=== PATIENT | male | born 1940 | race Caucasian/White ===

== ENCOUNTER 2020-05-04 12:20 | Inpatient (IN) | payer MEDICARE ==
[~2020-05-04 12:20] MED LIST: Atropine Sulfate 1 mg/10 ml Syringe ONE; Iopamidol 370 76% 100 ML VIAL ONE
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
[2020-05-04] MEDS ORDERED: Fentanyl 100 MCG/2 ML VIAL ONE (13:33)
[2020-05-04] MEDS ORDERED: Ondansetron PF 4 MG/2 ML Vial ONE ×2 (13:33→15:56)
[2020-05-04] MEDS ORDERED: Boostrix 0.5 ML (Tdap) VIAL ONE (13:33)
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
[2020-05-04 13:59] LABS: Hemoglobin 12.3 g/dL (14.0-18.0); Mean Corpuscular HGB CONC 32.6 g/dL (32.0-36.0); Mean Corpuscular Volume 98.2 fL (78.0-98.0); Platelet Count 179 thou/uL (130-400); RBC Distribution Width 12.2 % (11.5-14.5); Red Blood Cell (RBC) Count 3.84 mill/uL (4.70-6.10); White Blood Cell (WBC) Count 28.2 thou/uL (4.8-10.8)
[2020-05-04] MEDS ORDERED: Calcium Chloride 1 GM/10 ML Abboject SYRINGE ONE ×3 (14:02→23:18)
[2020-05-04] MEDS ORDERED: Magnesium 2 GM/50 ML BAG (IN WATER) ONE (14:02)
[2020-05-04 14:12] LABS: INR-International Normal Ratio 1.3; Prothrombin Time 16.6 sec (12.0-14.7)
[2020-05-04] MEDS ORDERED: Morphine 2 MG/ML VIAL SLOW IVP PRN ×2 (14:14→22:15)
[2020-05-04] MEDS ORDERED: Ondansetron PF 4 MG/2 ML Vial IVP PRN (14:14)
[2020-05-04] MEDS ORDERED: Insulin Regular 300 UNITS/3 ML VIAL SC PRN (14:14)
[2020-05-04] MEDS ORDERED: Dextrose 50% Abboject 50 ML SYRINGE SLOW IVP PRN (14:14)
[2020-05-04] MEDS ORDERED: Morphine 4 MG/ML VIAL SLOW IVP PRN (14:14)
[2020-05-04] MEDS ORDERED: Dextrose 5% in Water 1,000 ML IV PRN (14:14)
[2020-05-04] MEDS ORDERED: hydrALAZINE 20 MG/ML VIAL SLOW IVP PRN (14:14)
[2020-05-04] MEDS ORDERED: Sodium Chloride 0.9% 1,000 ML IV SCH (14:15)
[2020-05-04 14:17] LABS: Band 19 % (5-11); Eosinophils 1 % (0-10); Lymphocytes 2 % (21-51); MDiff Complete? YES; Metamyelocyte 1 % (0-0); Monocytes 2 % (0-10); Neutrophil 75 % (42-75); Ovalocytes SLIGHT = 2-5 cells (100X) (0-1/hpf); Platelet Morphology Comment Appears Adequate; Polychromasia SLIGHT = 2-3 cells (100X) (0-2/hpf)
[2020-05-04 14:24] LABS: ALT (SGPT) 38 U/L (8-55); AST (SGOT) 42 U/L (5-34); Albumin 3.1 g/dL (3.4-4.8); Alcohol Less than 10 mg/dL (Less than 10); Alkaline Phosphatase 51 U/L (40-110); Anion Gap 19 mmol/L (10-20); BUN (Urea Nitrogen) 17 mg/dL (8.4-25.7); Bilirubin, Total 0.5 mg/dL (0.2-1.2); Calc. Creatinine Clearance 0 mL/min (70-130); Calcium 7.8 mg/dL (7.8-10.44); Carbon Dioxide 17 mmol/L (23-31); Chloride 108 mmol/L (98-107); Globulin 1.9 g/dL (2.4-3.5); Glucose 140 mg/dL (83-110); Magnesium 1.8 mg/dL (1.6-2.6); Potassium 3.5 mmol/L (3.5-5.1); Sodium 140 mmol/L (136-145)
[2020-05-04 14:31] LABS: Phosphorus 2.3 mg/dL (2.3-4.7)
[2020-05-04] MEDS ORDERED: Hydrocortisone Sod Succ/PF 100 mg/2 ml Vial ONE (15:13)
[2020-05-04] MEDS ORDERED: Magnesium 2 GM/50 ML 2 GM in Premix Bag 1 BAG IVPB SCH (15:15)
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
[2020-05-04 15:43] LABS: Analyzer IN Cardio ER; Base Excess (BEa) -8.1 mEq/L (-2.0 to +3.0); Calcium, Ionized (arterial) 1.29 mmol/L (1.12-1.30); Carboxyhemoglobin (COHb) 0.5 gm% (0.0-3.0); Hemoglobin (Hb) 13.9 g/dL (14.0-18.0); O2 Tension (PaO2), arterial 73.8 mmHg (> 60.0); Potassium - ABG Lab 3.72 mmol/L (3.70-5.30); pH, Arterial 7.39 (7.35-7.45)
[2020-05-04 15:47] LABS: ALV-art Gradient 94.215 mmHg (0-20); CO2 Tension 25.3 mmHg (35.0-45.0); Puncture Site RRA
[2020-05-04 15:57] LABS: SARS-CoV-2 NAA Rapid Test Not Detected (NotDetected)
[2020-05-04] MEDS ORDERED: Tranexamic Acid 1,000 MG/10 ML VIAL ONE (15:58)
[2020-05-04] MEDS ORDERED: Famotidine/PF 20 mg/2ml Vial ONE (16:26)
[2020-05-04] MEDS ORDERED: Neomycin-Polymyxin 1 ML AMP ONE (16:52)
[2020-05-04] MEDS ORDERED: Lidocaine 1% (PF) 30 ML VIAL ONE (16:52)
[2020-05-04] MEDS ORDERED: Potassium Phosphate 15 MMOL in Sodium Chloride 0.9% 250 ML 250 ML IVPB SCH (17:00)
[2020-05-04 17:04] LABS: Troponin I Less than 0.010 ng/mL (< 0.028)
[2020-05-04] MEDS ORDERED: Fentanyl 250 MCG/5 ML VIAL ONE (17:16)
[2020-05-04] MEDS ORDERED: Phenylephrine 10 MG/ML VIAL ONE (17:16)
[2020-05-04 17:41] LABS: Lactic Acid 5.7 mmol/L (0.5-2.2)
[2020-05-04] MEDS ORDERED: Sodium Bicarb 50 MEQ/50 ML Abboject 8.4% SYRINGE ONE (17:49)
[2020-05-04] MEDS ORDERED: Fentanyl 100 MCG/2 ML VIAL SLOW IVP PRN (17:54)
[2020-05-04 18:19] LABS: Anion Gap 19 mmol/L (10-20); BUN (Urea Nitrogen) 17 mg/dL (8.4-25.7); Calc. Creatinine Clearance 0 mL/min (70-130); Calcium 8.6 mg/dL (7.8-10.44); Carbon Dioxide 15 mmol/L (23-31); Chloride 111 mmol/L (98-107); Glucose 178 mg/dL (83-110); Magnesium 1.7 mg/dL (1.6-2.6); Potassium 3.6 mmol/L (3.5-5.1); Sodium 141 mmol/L (136-145)
[2020-05-04 18:26] LABS: #Eosinphils 0.1 thou/uL (0.0-0.7); #Lymphocytes 0.9 thou/uL (1.20-3.40); #Monocytes 1.6 thou/uL (0.11-0.59); %Basophils 0.1 % (0.0-1.0); %Eosinophils 0.3 % (0.0-10.0); %Lymphocytes 4.1 % (21.0-51.0); %Monocytes 7.3 % (0.0-10.0); %Neutrophils 88.3 % (42.0-75.0); Hemoglobin 9.2 g/dL (14.0-18.0); Mean Corpuscular HGB CONC 33.7 g/dL (32.0-36.0); Mean Corpuscular Hemoglobin 31.7 pg (27.0-31.0); Platelet Count 208 thou/uL (130-400); RBC Distribution Width 13.7 % (11.5-14.5); Red Blood Cell (RBC) Count 2.91 mill/uL (4.70-6.10); White Blood Cell (WBC) Count 21.6 thou/uL (4.8-10.8)
[2020-05-04 18:28] LABS: Phosphorus 2.9 mg/dL (2.3-4.7)
[2020-05-04 18:30] LABS: INR-International Normal Ratio 1.7; PTT 30.4 sec (22.9-36.1); Prothrombin Time 19.9 sec (12.0-14.7)
[2020-05-04] MEDS: Gabapentin 100 MG CAP PO SCH ×2 (20:27→23:54)
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
[2020-05-04 21:00] LABS: Bacteria/HPF None Seen HPF (None Seen); Bilirubin Negative (Negative); Blood, Urine 1+ (Negative); Clarity Clear (Clear); Glucose, Urine (Dipstick) Normal (Negative); Ketone, Urine 10 mg/dL (Negative); Leukocyte Negative Leu/uL (Negative); Nitrite Negative (Negative); Protein, Urine (Dipstick) 10 mg/dL (Neg-Trace); RBC/HPF 0-3 HPF (0-3); Specific Gravity, Urine 1.049 (1.002-1.036); Squamous Epithelial 0-3 HPF (0-3); Urobilinogen Normal mg/dL (Less than 2); WBC/HPF 0-3 HPF (0-3); pH, Urine 5.5 (5.0-9.0)
[2020-05-04] MEDS ORDERED: Famotidine/PF 20 mg/2ml Vial SLOW IVP SCH (21:00)
[2020-05-04 21:17] LABS: Hemoglobin 7.6 g/dL (14.0-18.0); Mean Corpuscular HGB CONC 33.5 g/dL (32.0-36.0); Mean Corpuscular Hemoglobin 32.4 pg (27.0-31.0); Mean Corpuscular Volume 96.6 fL (78.0-98.0); Mean Platelet Volume 7.2 fL (7.4-10.4); Platelet Count 181 thou/uL (130-400); RBC Distribution Width 14.3 % (11.5-14.5); Red Blood Cell (RBC) Count 2.33 mill/uL (4.70-6.10); White Blood Cell (WBC) Count 17.7 thou/uL (4.8-10.8)
[2020-05-04 21:37] LABS: Lactic Acid 12.9 mmol/L (0.5-2.2)
--- NOTE | 2020-05-04 21:51 | RAD ---
Exam: Chest one view HISTORY:CODE BLUE. ET tube placement. Comparison: 05/04/2020 at 12:32 PM FINDINGS: Lines and tubes: Interval placement of endotracheal tube terminating at the level of clavicles. Nasog astric tube extends beyond the diaphragm. Distal tip is not seen. Cardiac silhouette:Stable cardiomegaly. Aorta: Stable atherosclerosis Pulmonary vessels: Normal Costophrenic angles: Small left-sided pleural effusion LUNGS: Worsening opacification of the left and right lung. There appears to be confluent opacity invo lving the left upper lobe and left lower lobe. Pneumothorax: None Osseous abnormalities: None IMPRESSION: 1. Worsening opacification lung parenchyma. 2. Endotracheal and nasogastric tube as above.
[2020-05-04] MEDS ORDERED: Ventilator Sedation Protocol 1 EACH FS ONE (21:55)
[2020-05-04] MEDS ORDERED: Propofol BOLUS 1,000 MG/100 ML VIAL IV PRN (22:15)
[2020-05-04] MEDS ORDERED: Propofol 1,000 MG/100 ML VIAL IV PRN (22:15)
[2020-05-04] MEDS ORDERED: DISCONTINUE PREVIOUS NARCOTIC PAIN MEDICATIONS AND BENZODIAZEPINES FS SCH (22:15)
[2020-05-04] MEDS ORDERED: Fentanyl BOLUS 250 ML IVPB PRN (22:15)
[2020-05-04] MEDS ORDERED: Lactated Ringer's 1,000 ML IV SCH ×2 (22:15→23:15)
[2020-05-04] MEDS ORDERED: Lorazepam 2 MG/ML VIAL SLOW IVP PRN (22:15)
[2020-05-04] MEDS: fentaNYL Citrate/PF 2,000 MCG in Sodium Chloride 0.9% 60 ML IV SCH (22:23)
[2020-05-04 22:48] LABS: Actual Bicarbonate (HCO3a) 10.4 mEq/L (22-28); Base Excess (BEa) -18.2 mEq/L (-2.0 to +3.0); CO2 Tension 37.8 mmHg (35.0-45.0); Calcium, Ionized (arterial) 0.97 mmol/L (1.12-1.30); Carboxyhemoglobin (COHb) 1.2 gm% (0.0-3.0); O2 Tension (PaO2), arterial 146.2 mmHg (> 60.0); Potassium - ABG Lab 4.39 mmol/L (3.70-5.30)
[2020-05-04 22:50] LABS: Hemoglobin (Hb) 5.3 g/dL (14.0-18.0); Puncture Site Arterial Line; pH, Arterial 7.06 (7.35-7.45)
[2020-05-04 23:28] LABS: Platelet Count 179 thou/uL (130-400)
[2020-05-04 23:31] LABS: INR-International Normal Ratio 1.9; PTT 37.3 sec (22.9-36.1); Prothrombin Time 22.5 sec (12.0-14.7)
[2020-05-04 23:35] LABS: Fibrinogen 142 mg/dL (253-463)
[2020-05-04 23:46] LABS: D-Dimer Test Greater than 20.00 *mcg/mL (0.27-0.43)
[2020-05-04 23:53] LABS: FSP-Qualitative ABNORMAL (Normal)
[2020-05-04] MEDS: Acetaminophen 325 MG TAB PO SCH (23:53)
[2020-05-04 23:54] LABS: FSP-Semiquantitative >=80 & <160 mcg/mL (Less than 5)
[2020-05-04] MEDS: Senokot S 8.6-50 MG TAB PO SCH (23:54)
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
[2020-05-05] MEDS ORDERED: Sodium Bicarb 50 MEQ/50 ML Abboject 8.4% SYRINGE ONE ×2 (00:43→03:20)
[2020-05-05 00:47] LABS: Hemoglobin 9.7 g/dL (14.0-18.0)
[2020-05-05 01:18] LABS: Lactic Acid 10.9 mmol/L (0.5-2.2)
[2020-05-05] MEDS ORDERED: Midazolam HCl 2 mg/2 ml Vial ONE (02:04)
[2020-05-05] MEDS ORDERED: Lidocaine 1% (PF) 30 ML VIAL ONE (02:04)
[2020-05-05] MEDS ORDERED: Vecuronium 10 MG VIAL ONE (02:05)
[2020-05-05] MEDS ORDERED: CEFAZOLIN 2 GM in Premix Bag 1 BAG IVPB SCH (02:15)
[2020-05-05] MEDS ORDERED: Midazolam HCl 5 mg/5 ml Vial ONE (02:39)
[2020-05-05] MEDS ORDERED: Fentanyl 100 MCG/2 ML VIAL ONE (02:39)
[2020-05-05] MEDS ORDERED: Phenylephrine 10 MG/ML VIAL ONE (02:40)
[2020-05-05] MEDS ORDERED: Calcium Chloride 1 GM/10 ML Abboject SYRINGE ONE ×2 (02:51→03:22)
[2020-05-05 03:18] LABS: INR-International Normal Ratio 1.2; PTT 23.4 sec (22.9-36.1); Prothrombin Time 15.5 sec (12.0-14.7)
[2020-05-05] MEDS ORDERED: Thrombin 5000 UNITS/5 ML VIAL ONE (03:22)
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
[2020-05-05] MEDS: Acetaminophen 325 MG TAB PO SCH ×4 (03:33→20:54)
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
[2020-05-05 03:42] LABS: Anion Gap 18 mmol/L (10-20); BUN (Urea Nitrogen) 19 mg/dL (8.4-25.7); Calc. Creatinine Clearance 44 mL/min (70-130); Calcium 8.5 mg/dL (7.8-10.44); Carbon Dioxide 16 mmol/L (23-31); Chloride 114 mmol/L (98-107); Glucose 211 mg/dL (83-110); Magnesium 1.7 mg/dL (1.6-2.6); Potassium 5.1 mmol/L (3.5-5.1); Sodium 143 mmol/L (136-145)
[2020-05-05 03:43] LABS: Lactic Acid 8.7 mmol/L (0.5-2.2)
[2020-05-05 03:44] LABS: Hemoglobin 9.4 g/dL (14.0-18.0); Mean Corpuscular HGB CONC 34.8 g/dL (32.0-36.0); Mean Corpuscular Hemoglobin 32.6 pg (27.0-31.0); Mean Corpuscular Volume 93.7 fL (78.0-98.0); Mean Platelet Volume 6.9 fL (7.4-10.4); Platelet Count 95 thou/uL (130-400); RBC Distribution Width 12.8 % (11.5-14.5); Red Blood Cell (RBC) Count 2.88 mill/uL (4.70-6.10); White Blood Cell (WBC) Count 10.3 thou/uL (4.8-10.8)
[2020-05-05 03:46] LABS: Hemoglobin 8.7 g/dL (14.0-18.0); Mean Corpuscular HGB CONC 35.5 g/dL (32.0-36.0); Mean Corpuscular Hemoglobin 32.9 pg (27.0-31.0); Mean Corpuscular Volume 92.7 fL (78.0-98.0); Mean Platelet Volume 6.8 fL (7.4-10.4); Platelet Count 71 thou/uL (130-400); RBC Distribution Width 12.8 % (11.5-14.5); Red Blood Cell (RBC) Count 2.64 mill/uL (4.70-6.10); White Blood Cell (WBC) Count 7.2 thou/uL (4.8-10.8)
[2020-05-05 03:49] LABS: Band 17 % (5-11); Hypochromia SLIGHT = 6-15 cells (100X) (0-5/hpf); Lymphocytes 9 % (21-51); MDiff Complete? YES; Monocytes 4 % (0-10); Neutrophil 69 % (42-75); Platelet Morphology Comment Appears Decreased; Reactive Lymphocytes 1 % (0-10)
[2020-05-05] MEDS ORDERED: Magnesium 2 GM/50 ML 2 GM in Premix Bag 1 BAG IVPB SCH ×3 (04:30→22:00)
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
[2020-05-05 05:04] LABS: Phosphorus 5.7 mg/dL (2.3-4.7)
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
[2020-05-05 07:27] LABS: #Monocytes 0.7 thou/uL (0.11-0.59); #Neutrophils 6.4 thou/uL (1.40-6.50); %Eosinophils 0.3 % (0.0-10.0); %Lymphocytes 12.8 % (21.0-51.0); %Monocytes 8.5 % (0.0-10.0); %Neutrophils 78.4 % (42.0-75.0); Hemoglobin 9.7 g/dL (14.0-18.0); Mean Corpuscular HGB CONC 34.5 g/dL (32.0-36.0); Mean Corpuscular Hemoglobin 31.5 pg (27.0-31.0); Mean Corpuscular Volume 91.3 fL (78.0-98.0); Mean Platelet Volume 7.5 fL (7.4-10.4); Platelet Count 82 thou/uL (130-400); Red Blood Cell (RBC) Count 3.07 mill/uL (4.70-6.10); White Blood Cell (WBC) Count 8.1 thou/uL (4.8-10.8)
[2020-05-05] MEDS ORDERED: Sodium Bicarbonate 50 MEQ in Sodium Chloride 0.45% 1,000 ML IV SCH ×2 (07:30→22:15)
[2020-05-05 07:35] LABS: INR-International Normal Ratio 1.2; PTT 29.5 sec (22.9-36.1); Prothrombin Time 15.7 sec (12.0-14.7)
[2020-05-05 07:36] LABS: Actual Bicarbonate (HCO3a) 18.7 mEq/L (22-28); Base Excess (BEa) -5.1 mEq/L (-2.0 to +3.0); CO2 Tension 30.2 mmHg (35.0-45.0); Calcium, Ionized (arterial) 1.29 mmol/L (1.12-1.30); Carboxyhemoglobin (COHb) 0.7 gm% (0.0-3.0); Hemoglobin (Hb) 9.6 g/dL (14.0-18.0); O2 Tension (PaO2), arterial 69.3 mmHg (> 60.0); Potassium - ABG Lab 4.19 mmol/L (3.70-5.30); pH, Arterial 7.41 (7.35-7.45)
[2020-05-05 07:45] LABS: Anion Gap 18 mmol/L (10-20); BUN (Urea Nitrogen) 19 mg/dL (8.4-25.7); Calc. Creatinine Clearance 45 mL/min (70-130); Calcium 9.2 mg/dL (7.8-10.44); Carbon Dioxide 20 mmol/L (23-31); Chloride 114 mmol/L (98-107); Glucose 174 mg/dL (83-110); Magnesium 1.6 mg/dL (1.6-2.6); Potassium 4.7 mmol/L (3.5-5.1); Sodium 147 mmol/L (136-145)
[2020-05-05 07:48] LABS: Puncture Site Arterial Line
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
[2020-05-05 08:06] LABS: Lactic Acid 4.5 mmol/L (0.5-2.2)
[2020-05-05 08:32] LABS: Phosphorus 4.6 mg/dL (2.3-4.7)
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
[2020-05-05] MEDS ORDERED: Iopamidol 370 76% 100 ML VIAL ONE (09:07)
--- NOTE | 2020-05-05 09:28 | RAD ---
PORTABLE CHEST: COMPARISON: 05/04/2020 exam. HISTORY: Followup of pulmonary contusion. FINDINGS: In comparison to the prior examination, the patient has now undergone a midline sternotomy. Endotrac heal and NG tubes are in satisfactory position. Left chest tube is in place. A left-sided subclavia n line is also noted. Bibasilar lung changes appear to represent atelectasis with possible associate d effusions. The pulmonary vessels are mildly engorged. [facility] consultation with Jossie, the patient's nurse. IMPRESSION: Post sternotomy change as discussed above. POS: CHARO
[2020-05-05] MEDS: Senokot S 8.6-50 MG TAB PO SCH ×2 (09:50→20:56)
[2020-05-05] MEDS: Gabapentin 100 MG CAP PO SCH ×3 (09:51→20:56)
[2020-05-05] MEDS: Polyethylene Glycol 3350 17 GM Packet PO SCH (09:52)
[2020-05-05] MEDS: Famotidine/PF 20 mg/2ml Vial SLOW IVP SCH (09:52)
[2020-05-05] MEDS: CEFAZOLIN 2 GM in Premix Bag 1 BAG IVPB SCH ×2 (09:53→18:50)
[2020-05-05] MEDS ORDERED: PHENYLEPHRINE-NS 100 MCG/ML 10 ML SYRINGE ONE ×2 (10:23)
[2020-05-05] MEDS ORDERED: ePHEDrine 50 MG/ML VIAL ONE (10:23)
[2020-05-05] MEDS ORDERED: Ondansetron PF 4 MG/2 ML Vial ONE (10:23)
[2020-05-05] MEDS ORDERED: Rocuronium Bromide 10 MG/ML (10ML VIAL) ONE ×2 (10:23)
--- NOTE | 2020-05-05 10:43 | OP ---
DATE OF PROCEDURE: 05/05/2020 PREOPERATIVE DIAGNOSES: Posttraumatic hemorrhage with bilateral hemothoraces, left greater than right; active bleeding from probable sternal fracture. POSTOPERATIVE DIAGNOSES: Posttraumatic hemorrhage with bilateral hemothoraces, left greater than right; active bleeding from probable sternal fracture. PROCEDURE PERFORMED: Mediastinal exploration, evacuation of clots from right and left pleural spaces, obtaining hemostasis, and repair sternal fracture with ORIF. ANESTHESIA: General. ESTIMATED BLOOD LOSS: Probably 200 to 300 mL. FINDINGS: The patient had oozing from all cut surfaces initially. The sternum had a fracture at about the 3rd intercostal space, more pronounced on the left side than the right side. He had about a 300 mL hematoma over the anterior pericardium posterior to the left side of the sternum. He had residual clots in his left pleural cavity and about 100 mL of blood in his right pleural cavity. DESCRIPTION OF PROCEDURE: After adequate anesthesia had been obtained, the patient was prepped and draped. A midline sternotomy was performed. After dividing the sternum, retractor was placed and there was a significant amount a hematoma posterior to the sternum. After obtaining hemostasis on the sternal edges with bone wax and the teaching pastor, the clots were evacuated from the mediastinum and then the left pleura was fairly widely opened at that point and clots were evacuated from this side. The left pleural cavity was irrigated with about 2 L of saline and then water and then a small hole was made in the right pleura where blood was evacuated and the area irrigated. After obtaining good hemostasis and inspecting the fracture site with no active bleeding, mediastinal and right pleural drain were placed. The sternum was then reapproximated with #7 interrupted wire with attention to reapproximating the fracture site. Subcutaneous tissue and skin were closed. Vancomycin paste, platelet-rich blood were used on the sternal edges and platelet-poor plasma on the subcutaneous tissue. Job ID: [id number]
[2020-05-05] MEDS: fentaNYL Citrate/PF 2,000 MCG in Sodium Chloride 0.9% 60 ML IV SCH (11:01)
[2020-05-05 13:34] LABS: Hemoglobin 8.6 g/dL (14.0-18.0); Mean Corpuscular HGB CONC 35.7 g/dL (32.0-36.0); Mean Corpuscular Hemoglobin 32.5 pg (27.0-31.0); Mean Corpuscular Volume 91.1 fL (78.0-98.0); Mean Platelet Volume 8.5 fL (7.4-10.4); Platelet Count 80 thou/uL (130-400); Red Blood Cell (RBC) Count 2.65 mill/uL (4.70-6.10); White Blood Cell (WBC) Count 9.6 thou/uL (4.8-10.8)
[2020-05-05 13:42] LABS: INR-International Normal Ratio 1.3; PTT 27.8 sec (22.9-36.1); Prothrombin Time 16.7 sec (12.0-14.7)
[2020-05-05 13:49] LABS: Band 26 % (5-11); Lymphocytes 13 % (21-51); MDiff Complete? YES; Metamyelocyte 2 % (0-0); Monocytes 2 % (0-10); Neutrophil 56 % (42-75); Ovalocytes SLIGHT = 2-5 cells (100X) (0-1/hpf); Platelet Morphology Comment Appears Decreased; Polychromasia SLIGHT = 2-3 cells (100X) (0-2/hpf)
[2020-05-05] MEDS ORDERED: Sodium Chloride 0.9% 1,000 ML IV SCH (14:00)
[2020-05-05 14:19] LABS: Lactic Acid 3.1 mmol/L (0.5-2.2)
[2020-05-05 14:35] LABS: Anion Gap 12 mmol/L (10-20); BUN (Urea Nitrogen) 23 mg/dL (8.4-25.7); Calc. Creatinine Clearance 43 mL/min (70-130); Calcium 8.3 mg/dL (7.8-10.44); Carbon Dioxide 24 mmol/L (23-31); Chloride 113 mmol/L (98-107); Glucose 122 mg/dL (83-110); Phosphorus 3.2 mg/dL (2.3-4.7); Potassium 4.4 mmol/L (3.5-5.1); Sodium 145 mmol/L (136-145)
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
--- NOTE | 2020-05-05 19:33 | RAD ---
INTRAOPERATIVE IMAGING OF THE RIGHT TIBIA AND FIBULA: 05/05/20 HISTORY: Injury, trauma, ORIF. FINDINGS: There is an intramedullary davide within the partially imaged tibial shaft with a comminuted shaft fract ure noted. There is a multifocal comminuted fibular fracture, partially imaged on this exam. IMPRESSION: Intraoperative imaging as above. POS: OFF
[2020-05-05 19:53] LABS: Hemoglobin 8.9 g/dL (14.0-18.0); Mean Corpuscular HGB CONC 34.6 g/dL (32.0-36.0); Mean Corpuscular Hemoglobin 31.6 pg (27.0-31.0); Mean Corpuscular Volume 91.5 fL (78.0-98.0); Mean Platelet Volume 7.4 fL (7.4-10.4); Platelet Count 64 thou/uL (130-400); Red Blood Cell (RBC) Count 2.82 mill/uL (4.70-6.10); White Blood Cell (WBC) Count 8.8 thou/uL (4.8-10.8)
[2020-05-05 20:18] LABS: Anion Gap 12 mmol/L (10-20); BUN (Urea Nitrogen) 23 mg/dL (8.4-25.7); Calc. Creatinine Clearance 46 mL/min (70-130); Calcium 7.6 mg/dL (7.8-10.44); Carbon Dioxide 23 mmol/L (23-31); Chloride 114 mmol/L (98-107); Glucose 123 mg/dL (83-110); Magnesium 1.8 mg/dL (1.6-2.6); Phosphorus 3.5 mg/dL (2.3-4.7); Sodium 145 mmol/L (136-145)
[2020-05-05] MEDS ORDERED: Gabapentin 100 MG CAP PO SCH (21:20)
[2020-05-05] MEDS ORDERED: Melatonin 3 MG TAB PER TUBE PRN (21:38)
[2020-05-05] MEDS ORDERED: Gabapentin 300 MG CAP PO SCH (22:00)
[2020-05-05] MEDS ORDERED: Lactated Ringer's 500 ML IV SCH (22:00)
[2020-05-05 22:17] LABS: Actual Bicarbonate (HCO3a) 21.4 mEq/L (22-28); Base Excess (BEa) -2.3 mEq/L (-2.0 to +3.0); CO2 Tension 32.2 mmHg (35.0-45.0); Calcium, Ionized (arterial) 1.09 mmol/L (1.12-1.30); Carboxyhemoglobin (COHb) 0.9 gm% (0.0-3.0); Potassium - ABG Lab 3.78 mmol/L (3.70-5.30); pH, Arterial 7.44 (7.35-7.45)
[2020-05-05 22:18] LABS: Puncture Site Arterial Line
[2020-05-05] MEDS ORDERED: Calcium Gluc 4.6 MEQ/10 ML (100 MG/ML) SLOW IVP SCH (22:45)
[2020-05-06] MEDS: CEFAZOLIN 2 GM in Premix Bag 1 BAG IVPB SCH ×3 (02:39→18:17)
[2020-05-06] MEDS: Acetaminophen 325 MG TAB PO SCH ×4 (02:41→20:32)
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
[2020-05-06 05:18] LABS: #Lymphocytes 0.9 thou/uL (1.20-3.40); #Monocytes 0.5 thou/uL (0.11-0.59); #Neutrophils 6.5 thou/uL (1.40-6.50); %Basophils 0.2 % (0.0-1.0); %Eosinophils 0.2 % (0.0-10.0); %Lymphocytes 10.7 % (21.0-51.0); %Monocytes 6.5 % (0.0-10.0); %Neutrophils 82.4 % (42.0-75.0); Hemoglobin 9.1 g/dL (14.0-18.0); Lactic Acid 2.4 mmol/L (0.5-2.2); Mean Corpuscular HGB CONC 34.9 g/dL (32.0-36.0); Mean Corpuscular Hemoglobin 32.2 pg (27.0-31.0); Mean Corpuscular Volume 92.3 fL (78.0-98.0); Mean Platelet Volume 8.2 fL (7.4-10.4); Platelet Count 60 thou/uL (130-400); RBC Distribution Width 12.9 % (11.5-14.5); Red Blood Cell (RBC) Count 2.82 mill/uL (4.70-6.10); White Blood Cell (WBC) Count 7.9 thou/uL (4.8-10.8)
[2020-05-06 05:27] LABS: Anion Gap 12 mmol/L (10-20); BUN (Urea Nitrogen) 23 mg/dL (8.4-25.7); Calc. Creatinine Clearance 49 mL/min (70-130); Calcium 7.7 mg/dL (7.8-10.44); Carbon Dioxide 25 mmol/L (23-31); Chloride 112 mmol/L (98-107); Glucose 105 mg/dL (83-110); Magnesium 2.1 mg/dL (1.6-2.6); Phosphorus 2.6 mg/dL (2.3-4.7); Potassium 3.6 mmol/L (3.5-5.1); Sodium 145 mmol/L (136-145)
--- NOTE | 2020-05-06 07:15 | PRG ---
DATE OF SERVICE: 05/06/2020 I returned to see Mr. Finn this morning. He is a bit too sedated to participate in his examination yesterday and wanted to ensure good neurological function. He recovered from his anesthetic for sternal injury yesterday and began following commands. He does not like being intubated and makes attempts to extricate him from his endotracheal tube. Among the electronically recorded vital signs, temperature I see this morning at 99.5 degrees Fahrenheit. Blood pressures have been in the 130s to 140s. On examination, Mr. Finn is now awake. His eyes are open. He nods and shakes his head to questions. He follows commands with all 4 extremities. He seems to want to be removed from the ventilator. Mr. Finn is extubated. He can tell us whether his neck hurts and then whether he is tender at the cervicothoracic junction. If there is no tenderness, then I am skeptical about the transverse process fracture on the right at C7. If he is tender, he can wear a collar for pain control for 8 weeks until the fracture heals. The thoracolumbar spinal orthosis will be beneficial for his T9 fracture and we will allow to heal faster and has the pain to be better controlled. He does not need that brace when he is flat in bed, but when he is sitting at 45 degrees or farther, it can be applied. I do not see any indication for neurosurgical intervention. We are going to follow him up in the office with x-rays. Job ID: [id number] MTDD
[2020-05-06] MEDS ORDERED: Potassium Phosphate 15 MMOL in Sodium Chloride 0.9% 250 ML 250 ML IVPB SCH (07:30)
--- NOTE | 2020-05-06 07:45 | PRG ---
DATE OF SERVICE: 05/06/2020 The patient is now postoperative day #1 following his emergent sternotomy for bleeding. He had his right leg surgical procedure yesterday. His chest x-ray this morning shows fluid in the right chest. His hemoglobin is stable and his renal function is stable. At this time, he does have a chest drain in the right side and I think that with change in position, perhaps even sitting up that we may see some drainage from this side. I will leave his drains in for the time being until we are able to sit him up a bit more. Job ID: [id number]
[2020-05-06 08:27] LABS: Actual Bicarbonate (HCO3a) 21.8 mEq/L (22-28); Carboxyhemoglobin (COHb) 0.1 gm% (0.0-3.0); Hemoglobin (Hb) 9.1 g/dL (14.0-18.0); O2 Tension (PaO2), arterial 102.3 mmHg (> 60.0); Potassium - ABG Lab 3.41 mmol/L (3.70-5.30)
[2020-05-06 08:29] LABS: CO2 Tension 25.7 mmHg (35.0-45.0); Puncture Site Arterial Line; pH, Arterial 7.55 (7.35-7.45)
[2020-05-06 08:30] LABS: ALV-art Gradient 222.075 mmHg (0-20)
--- NOTE | 2020-05-06 08:33 | RAD ---
AP CHEST: HISTORY: Intubation. CCU followup. COMPARISON: 05/05/2020. FINDINGS: Bilateral effusions. Hazy infiltrate and/or fluid layering posteriorly in the right chest. Left santa g remains aerated and clear. Central line unchanged. IMPRESSION: No acute interval change. POS: AGW
[2020-05-06] MEDS ORDERED: CEFAZOLIN 2 GM in Premix Bag 1 BAG IVPB SCH (09:15)
[2020-05-06] MEDS: Polyethylene Glycol 3350 17 GM Packet PO SCH (09:23)
[2020-05-06] MEDS: Famotidine/PF 20 mg/2ml Vial SLOW IVP SCH (09:24)
[2020-05-06] MEDS: Gabapentin 300 MG CAP PO SCH ×3 (09:24→20:10)
[2020-05-06] MEDS: Senokot S 8.6-50 MG TAB PO SCH ×2 (09:48→20:10)
[2020-05-06] MEDS: Lactated Ringer's 1,000 ML IV SCH ×2 (09:49→18:18)
[2020-05-06] MEDS ORDERED: Furosemide 40 MG/4 ML VIAL SLOW IVP SCH (10:15)
[2020-05-06] MEDS ORDERED: traMADol HCl 50 MG TAB PO PRN (11:53)
[2020-05-06] MEDS ORDERED: Metoprolol Tartrate 5 MG/5 ML VIAL IVP SCH (12:00)
[2020-05-06] MEDS: Metoprolol Tartrate 5 MG/5 ML VIAL IVP SCH ×3 (12:20→20:10)
[2020-05-06] MEDS: traMADol HCl 50 MG TAB PO PRN (12:25)
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
[2020-05-06] MEDS: Acetaminophen 650 MG/20.3 ML UDCUP PO SCH (20:09)
[2020-05-06] MEDS: Bacitracin 1 PK TOP SCH (20:10)
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
[2020-05-07] MEDS: Metoprolol Tartrate 5 MG/5 ML VIAL IVP SCH ×6 (00:05→20:30)
[2020-05-07] MEDS: CEFAZOLIN 2 GM in Premix Bag 1 BAG IVPB SCH ×3 (02:04→18:34)
[2020-05-07] MEDS: Acetaminophen 650 MG/20.3 ML UDCUP PO SCH ×4 (02:04→21:01)
[2020-05-07 05:33] LABS: Anion Gap 10 mmol/L (10-20); BUN (Urea Nitrogen) 21 mg/dL (8.4-25.7); Calc. Creatinine Clearance 66 mL/min (70-130); Calcium 7.3 mg/dL (7.8-10.44); Carbon Dioxide 28 mmol/L (23-31); Chloride 110 mmol/L (98-107); Glucose 100 mg/dL (83-110); Magnesium 2.1 mg/dL (1.6-2.6); Potassium 3.4 mmol/L (3.5-5.1); Sodium 145 mmol/L (136-145)
[2020-05-07 05:41] LABS: #Eosinphils 0.1 thou/uL (0.0-0.7); #Lymphocytes 0.8 thou/uL (1.20-3.40); #Monocytes 0.6 thou/uL (0.11-0.59); #Neutrophils 7.9 thou/uL (1.40-6.50); %Basophils 0.1 % (0.0-1.0); %Lymphocytes 8.9 % (21.0-51.0); %Monocytes 6.1 % (0.0-10.0); %Neutrophils 83.9 % (42.0-75.0); Mean Corpuscular HGB CONC 34.8 g/dL (32.0-36.0); Mean Corpuscular Hemoglobin 31.8 pg (27.0-31.0); Mean Corpuscular Volume 91.3 fL (78.0-98.0); Mean Platelet Volume 7.9 fL (7.4-10.4); Platelet Count 71 thou/uL (130-400); RBC Distribution Width 12.9 % (11.5-14.5); Red Blood Cell (RBC) Count 2.84 mill/uL (4.70-6.10); White Blood Cell (WBC) Count 9.4 thou/uL (4.8-10.8)
[2020-05-07] MEDS: Lactated Ringer's 1,000 ML IV SCH ×2 (05:46→15:08)
[2020-05-07] MEDS ORDERED: Potassium Phosphate 30 MMOL in Sodium Chloride 0.9% 250 ML 250 ML IVPB SCH (07:15)
[2020-05-07] MEDS: Gabapentin 300 MG CAP PO SCH ×3 (07:53→21:02)
[2020-05-07] MEDS: Polyethylene Glycol 3350 17 GM Packet PO SCH (07:54)
[2020-05-07] MEDS: Senokot S 8.6-50 MG TAB PO SCH ×2 (07:54→21:02)
--- NOTE | 2020-05-07 07:54 | PRG ---
DATE OF SERVICE: 05/07/2020 The patient had his right leg fractures stabilized yesterday in the operating room. He was able to be extubated yesterday and during the night, he was able to dump the right pleural effusion out of his mediastinal chest tubes with stable hemoglobin. Chest tubes in the midline were removed this morning. He is awake, sleepy, but responsive. Hemoglobin is stable at 9 g, platelet count remained slightly depressed at about 70,000 and I imagine this is due to related to his consumptive coagulopathy from his hemorrhage on admission. In any event, he is doing well and he is scheduled for repair of his acetabular fracture later today. Job ID: [id number]
[2020-05-07] MEDS: Famotidine/PF 20 mg/2ml Vial SLOW IVP SCH (08:06)
[2020-05-07] MEDS: Bacitracin 1 PK TOP SCH ×2 (08:06→21:02)
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
[2020-05-07] MEDS ORDERED: Rocuronium Bromide 10 MG/ML (10ML VIAL) ONE (09:49)
[2020-05-07] MEDS ORDERED: PHENYLEPHRINE-NS 100 MCG/ML 10 ML SYRINGE ONE (09:49)
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
[2020-05-07] MEDS ORDERED: Norepinephrine 4 MG/4 ML VIAL ONE (13:00)
[2020-05-07 14:56] LABS: Actual Bicarbonate (HCO3a) 25.3 mEq/L (22-28); Base Excess (BEa) -0.1 mEq/L (-2.0 to +3.0); CO2 Tension 44.9 mmHg (35.0-45.0); Calcium, Ionized (arterial) 1.04 mmol/L (1.12-1.30); Hemoglobin (Hb) 8.9 g/dL (14.0-18.0); O2 Tension (PaO2), arterial 78.2 mmHg (> 60.0); Potassium - ABG Lab 3.81 mmol/L (3.70-5.30); pH, Arterial 7.37 (7.35-7.45)
--- NOTE | 2020-05-07 15:00 | RAD ---
XR Pelvis Minimum 3 Views History: ORIF Comparison: CT examination 2 days prior Findings: 3 images were obtained from the operating room. Plate and screw fixation posterior acetabul ar wall fracture. Impression: Fluoroscopy for procedure purposes.
[2020-05-07 15:12] LABS: ALV-art Gradient 150.875 mmHg (0-20); Puncture Site Arterial Line
[2020-05-07] MEDS ORDERED: Calcium Chloride 13.6 MEQ in Sodium Chloride 0.9% 100 ML IVPB SCH (16:15)
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
[2020-05-07] MEDS: Morphine 4 MG/ML VIAL SLOW IVP PRN (17:03)
[2020-05-07] MEDS ORDERED: CEFAZOLIN 2 GM in Premix Bag 1 BAG IVPB SCH (22:00)
--- NOTE | 2020-05-07 23:34 | PRG ---
DATE OF SERVICE: 05/07/2020 SUBJECTIVE: Patient was seen during evening rounds, awake and alert, in no distress. The patient went to the OR earlier today to have his left posterior wall acetabular fixed by Dr. Chandler. The patient denies any pain at this time. The patient's nurse states that he had refused his Tylenol earlier. The patient's vital signs are stable and he remains afebrile. The patient's urinary output has been adequate for patient's age and weight. The patient is off all pressors and inotropes. The patient continues to receive maintenance IV fluids LR at 100 mL an hour. The patient is pending Speech Therapy evaluation. The patient has been having some difficulty swallowing, but denies any throat pain. Patient has atrial fib on the monitor, rate controlled. Respirations are even and nonlabored, mild scattered rhonchi, but improved from yesterday. Patient is requiring 4 L nasal cannula, saturating 96%. PLAN: Continue supportive care and pain regimen. Physical and occupational therapy. Job ID: [id number]
[2020-05-08] MEDS: Acetaminophen 500 MG TAB PO SCH ×5 (01:06→23:14)
[2020-05-08] MEDS: CEFAZOLIN 2 GM in Premix Bag 1 BAG IVPB SCH ×3 (01:07→18:07)
[2020-05-08] MEDS: Melatonin 3 MG TAB PO PRN (01:07)
[2020-05-08] MEDS: Metoprolol Tartrate 5 MG/5 ML VIAL IVP SCH ×7 (01:08→23:14)
[2020-05-08] MEDS: Morphine 4 MG/ML VIAL SLOW IVP PRN (02:34)
[2020-05-08] MEDS: Lactated Ringer's 1,000 ML IV SCH ×3 (02:56→18:06)
[2020-05-08 05:13] LABS: #Eosinphils 0.1 thou/uL (0.0-0.7); #Lymphocytes 0.5 thou/uL (1.20-3.40); #Monocytes 0.7 thou/uL (0.11-0.59); #Neutrophils 7.2 thou/uL (1.40-6.50); %Basophils 0.2 % (0.0-1.0); %Eosinophils 1.2 % (0.0-10.0); %Lymphocytes 6.1 % (21.0-51.0); %Monocytes 8.1 % (0.0-10.0); %Neutrophils 84.4 % (42.0-75.0); Hemoglobin 8.5 g/dL (14.0-18.0); Mean Corpuscular HGB CONC 34.2 g/dL (32.0-36.0); Mean Corpuscular Hemoglobin 31.7 pg (27.0-31.0); Mean Corpuscular Volume 92.7 fL (78.0-98.0); Mean Platelet Volume 7.6 fL (7.4-10.4); Platelet Count 75 thou/uL (130-400); RBC Distribution Width 12.8 % (11.5-14.5); Red Blood Cell (RBC) Count 2.69 mill/uL (4.70-6.10); White Blood Cell (WBC) Count 8.5 thou/uL (4.8-10.8)
[2020-05-08 05:23] LABS: Anion Gap 12 mmol/L (10-20); BUN (Urea Nitrogen) 20 mg/dL (8.4-25.7); Calc. Creatinine Clearance 76 mL/min (70-130); Calcium 7.5 mg/dL (7.8-10.44); Carbon Dioxide 26 mmol/L (23-31); Chloride 110 mmol/L (98-107); Glucose 90 mg/dL (83-110); Magnesium 1.9 mg/dL (1.6-2.6); Phosphorus 2.7 mg/dL (2.3-4.7); Potassium 3.7 mmol/L (3.5-5.1); Sodium 144 mmol/L (136-145)
[2020-05-08] MEDS ORDERED: Potassium Phosphate 15 MMOL in Sodium Chloride 0.9% 250 ML 250 ML IVPB SCH (07:45)
--- NOTE | 2020-05-08 08:10 | RAD ---
XR Chest 1 View Portable History: Chest tube Comparison: Radiograph prior day Findings: Left thoracostomy tube is similar. Moderate bilateral pleural effusions. Parenchymal opacit ies are similar. Left subclavian approach central venous catheter tip projects over the right atrium. Impression: Similar examination of the chest. No large left pneumothorax.
[2020-05-08] MEDS: Polyethylene Glycol 3350 17 GM Packet PO SCH (09:01)
[2020-05-08] MEDS: Famotidine/PF 20 mg/2ml Vial SLOW IVP SCH (09:01)
[2020-05-08] MEDS: Bacitracin 1 PK TOP SCH ×2 (09:01→20:32)
[2020-05-08] MEDS: Senokot S 8.6-50 MG TAB PO SCH ×2 (09:01→20:28)
[2020-05-08] MEDS: Gabapentin 300 MG CAP PO SCH ×3 (09:01→20:29)
--- NOTE | 2020-05-08 14:42 | EKG ---
Test Reason : Blood Pressure : / mmHG Vent. Rate : 072 BPM Atrial Rate : 072 BPM P-R Int : 154 ms QRS Dur : 072 ms QT Int : 404 ms P-R-T Axes : 061 016 013 degrees QTc Int : 442 ms Normal sinus rhythm Possible Inferior infarct , age undetermined Cannot rule out Anterior infarct , age undetermined Abnormal ECG Confirmed by MARGARITA FARR ([id number]), editor school photograph JOSE SHEEHAN ([id number]) on 05/08/2020 2:42:00 PM Referred By: Confirmed By:MARGARITA FARR
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
[2020-05-08] MEDS: Cyclobenzaprine 10 MG TAB PO PRN (20:28)
[2020-05-08] MEDS: traMADol HCl 50 MG TAB PO PRN (20:29)
[2020-05-09] MEDS: Metoprolol Tartrate 5 MG/5 ML VIAL IVP SCH ×2 (03:39→10:19)
[2020-05-09 04:12] LABS: #Eosinphils 0.4 thou/uL (0.0-0.7); #Lymphocytes 1.1 thou/uL (1.20-3.40); #Neutrophils 6.4 thou/uL (1.40-6.50); %Basophils 0.4 % (0.0-1.0); %Lymphocytes 11.8 % (21.0-51.0); %Monocytes 11.5 % (0.0-10.0); %Neutrophils 72.2 % (42.0-75.0); Hemoglobin 8.2 g/dL (14.0-18.0); Mean Corpuscular HGB CONC 34.1 g/dL (32.0-36.0); Mean Corpuscular Hemoglobin 32.3 pg (27.0-31.0); Mean Corpuscular Volume 94.7 fL (78.0-98.0); Mean Platelet Volume 7.6 fL (7.4-10.4); Platelet Count 114 thou/uL (130-400); RBC Distribution Width 13.2 % (11.5-14.5); Red Blood Cell (RBC) Count 2.53 mill/uL (4.70-6.10); White Blood Cell (WBC) Count 8.9 thou/uL (4.8-10.8)
[2020-05-09 04:25] LABS: Anion Gap 9 mmol/L (10-20); BUN (Urea Nitrogen) 24 mg/dL (8.4-25.7); Calc. Creatinine Clearance 76 mL/min (70-130); Calcium 7.3 mg/dL (7.8-10.44); Carbon Dioxide 29 mmol/L (23-31); Chloride 109 mmol/L (98-107); Glucose 130 mg/dL (83-110); Magnesium 2.1 mg/dL (1.6-2.6); Potassium 3.4 mmol/L (3.5-5.1); Sodium 144 mmol/L (136-145)
[2020-05-09] MEDS: Acetaminophen 500 MG TAB PO SCH ×4 (06:15→20:30)
[2020-05-09] MEDS: Lactated Ringer's 1,000 ML IV SCH (07:19)
[2020-05-09] MEDS ORDERED: Potassium Phosphate 30 MMOL in Sodium Chloride 0.9% 250 ML 250 ML IVPB SCH (07:45)
--- NOTE | 2020-05-09 07:58 | RAD ---
XR Chest 1 View Portable History: Chest tube Comparison: Radiograph prior day Findings: Left thoracostomy tube is similar. Mild redistribution of now layering and less subpulmonic pleural effusion. Moderate left effusion. Subclavian central venous catheter is similar. Heart size is enlarged. No pneumothorax. Airspace opacities are similar. Impression: Similar examination of the chest.
[2020-05-09] MEDS: Bacitracin 1 PK TOP SCH ×2 (08:53→20:32)
[2020-05-09] MEDS: Famotidine/PF 20 mg/2ml Vial SLOW IVP SCH (08:53)
[2020-05-09] MEDS: Gabapentin 300 MG CAP PO SCH ×3 (08:54→20:31)
[2020-05-09] MEDS: Polyethylene Glycol 3350 17 GM Packet PO SCH (08:54)
[2020-05-09] MEDS: Senokot S 8.6-50 MG TAB PO SCH ×2 (08:54→20:30)
[2020-05-09] MEDS ORDERED: Furosemide 20 MG/2 ML VIAL SLOW IVP SCH (09:30)
[2020-05-09] MEDS: Furosemide 20 MG/2 ML VIAL SLOW IVP SCH ×2 (10:38→18:28)
[2020-05-09] MEDS: Enoxaparin Sodium 30 MG/0.3 ML SYRINGE SC SCH (10:38)
[2020-05-09] MEDS: Metoprolol Tartrate 25 MG TAB PO SCH ×2 (13:09→20:31)
[2020-05-09] MEDS: traMADol HCl 50 MG TAB PO PRN (13:09)
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
[2020-05-09] MEDS: Melatonin 3 MG TAB PO PRN (20:30)
[2020-05-10] MEDS: Furosemide 20 MG/2 ML VIAL SLOW IVP SCH (01:14)
[2020-05-10] MEDS: Acetaminophen 500 MG TAB PO SCH ×5 (01:35→20:49)
[2020-05-10 04:51] LABS: #Eosinphils 0.4 thou/uL (0.0-0.7); #Lymphocytes 0.8 thou/uL (1.20-3.40); #Monocytes 0.9 thou/uL (0.11-0.59); #Neutrophils 6.3 thou/uL (1.40-6.50); %Basophils 0.3 % (0.0-1.0); %Eosinophils 4.9 % (0.0-10.0); %Lymphocytes 9.7 % (21.0-51.0); %Monocytes 11.1 % (0.0-10.0); Hemoglobin 7.8 g/dL (14.0-18.0); Mean Corpuscular HGB CONC 31.7 g/dL (32.0-36.0); Mean Corpuscular Hemoglobin 30.1 pg (27.0-31.0); Mean Platelet Volume 7.5 fL (7.4-10.4); Platelet Count 156 thou/uL (130-400); RBC Distribution Width 13.6 % (11.5-14.5); Red Blood Cell (RBC) Count 2.59 mill/uL (4.70-6.10); White Blood Cell (WBC) Count 8.5 thou/uL (4.8-10.8)
[2020-05-10 05:09] LABS: Anion Gap 11 mmol/L (10-20); BUN (Urea Nitrogen) 22 mg/dL (8.4-25.7); Calc. Creatinine Clearance 80 mL/min (70-130); Calcium 7.3 mg/dL (7.8-10.44); Carbon Dioxide 29 mmol/L (23-31); Chloride 105 mmol/L (98-107); Glucose 92 mg/dL (83-110); Magnesium 1.9 mg/dL (1.6-2.6); Phosphorus 3.2 mg/dL (2.3-4.7); Potassium 3.4 mmol/L (3.5-5.1); Sodium 142 mmol/L (136-145)
--- NOTE | 2020-05-10 05:18 | PRG ---
DATE OF SERVICE: 05/09/2020 SUBJECTIVE: Patient was seen during evening rounds in the IMCU. The patient is awake, alert, receiving a neb treatment and sitting up in the neuro chair. The patient's son is currently at bedside, states that he has been most of the day awake today. The patient denies any pain at this time. The patient's left-sided chest tube remains in place to water-seal. The patient was started on Lovenox today for VTE prophylaxis. Vital signs are stable and patient remains afebrile. PLAN: Unchanged. Continue supportive care and pain regimen. Aggressive pulmonary toilet. Increase activity per Physical and Occupational Therapy. Job ID: [id number]
[2020-05-10] MEDS ORDERED: Potassium Phosphate 30 MMOL in Sodium Chloride 0.9% 250 ML 250 ML IVPB SCH (07:45)
--- NOTE | 2020-05-10 08:13 | RAD ---
XR Chest 1 View Portable History: Chest tube Comparison: Radiograph prior day Findings: Left thoracostomy is in place with side port within the left hemithorax. Moderate left pleu ral effusion is similar. Large right layering pleural effusion. Perihilar and peripheral opacities are similar. Left subclavian central venous catheter tip sits at the cavoatrial junction. Calcified right hilar ly mph nodes. Impression: Similar examination of the chest without improved lung aeration.
[2020-05-10] MEDS: Senokot S 8.6-50 MG TAB PO SCH ×2 (08:41→20:49)
[2020-05-10] MEDS: Famotidine/PF 20 mg/2ml Vial SLOW IVP SCH (08:41)
[2020-05-10] MEDS: Bacitracin 1 PK TOP SCH ×2 (08:42→20:49)
[2020-05-10] MEDS: Metoprolol Tartrate 25 MG TAB PO SCH ×2 (08:42→20:49)
[2020-05-10] MEDS: Gabapentin 300 MG CAP PO SCH ×3 (08:42→20:48)
[2020-05-10] MEDS: Atorvastatin Calcium 40 MG TAB PO SCH (08:42)
[2020-05-10] MEDS: Enoxaparin Sodium 30 MG/0.3 ML SYRINGE SC SCH (08:42)
[2020-05-10] MEDS: Polyethylene Glycol 3350 17 GM Packet PO SCH (08:42)
[2020-05-10] MEDS: Magnesium 2 GM/50 ML 2 GM in Premix Bag 1 BAG IVPB SCH ×2 (11:35→11:36)
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
--- NOTE | 2020-05-11 00:50 | PRG ---
DATE OF SERVICE: 05/10/2020 SUBJECTIVE: The patient was seen during evening rounds on the surgical floor. The patient is currently awake, alert, in no distress, watching TV. The patient denies any pain at this time. The patient has a left-sided chest tube to water-seal with no air leak. OBJECTIVE: Vital signs are stable and the patient remains afebrile. PLAN: Continue supportive care and pain regimen. Possibly discontinue left chest tube if output remains low. Continue PT and OT. Job ID: [id number]
[2020-05-11] MEDS ORDERED: Haloperidol Lactate 5 MG/ML VIAL SLOW IVP SCH (03:00)
[2020-05-11] MEDS: Acetaminophen 500 MG TAB PO SCH ×4 (04:44→22:16)
[2020-05-11 06:15] LABS: #Eosinphils 0.4 thou/uL (0.0-0.7); #Lymphocytes 0.7 thou/uL (1.20-3.40); #Monocytes 0.8 thou/uL (0.11-0.59); #Neutrophils 6.1 thou/uL (1.40-6.50); %Basophils 0.5 % (0.0-1.0); %Lymphocytes 9.2 % (21.0-51.0); %Monocytes 9.9 % (0.0-10.0); %Neutrophils 75.5 % (42.0-75.0); Hemoglobin 9.4 g/dL (14.0-18.0); Mean Corpuscular HGB CONC 33.7 g/dL (32.0-36.0); Mean Corpuscular Hemoglobin 32.6 pg (27.0-31.0); Mean Corpuscular Volume 96.5 fL (78.0-98.0); Mean Platelet Volume 7.2 fL (7.4-10.4); Platelet Count 175 thou/uL (130-400); RBC Distribution Width 13.7 % (11.5-14.5); Red Blood Cell (RBC) Count 2.88 mill/uL (4.70-6.10); White Blood Cell (WBC) Count 8.1 thou/uL (4.8-10.8)
[2020-05-11 06:46] LABS: Anion Gap 12 mmol/L (10-20); BUN (Urea Nitrogen) 27 mg/dL (8.4-25.7); Calc. Creatinine Clearance 79 mL/min (70-130); Calcium 7.4 mg/dL (7.8-10.44); Carbon Dioxide 28 mmol/L (23-31); Chloride 106 mmol/L (98-107); Glucose 89 mg/dL (83-110); Magnesium 2.1 mg/dL (1.6-2.6); Phosphorus 2.5 mg/dL (2.3-4.7); Potassium 3.5 mmol/L (3.5-5.1); Sodium 142 mmol/L (136-145)
[2020-05-11] MEDS ORDERED: Potassium Phosphate 30 MMOL in Sodium Chloride 0.9% 250 ML 250 ML IVPB SCH (09:15)
[2020-05-11] MEDS: Atorvastatin Calcium 40 MG TAB PO SCH (10:34)
[2020-05-11] MEDS: Senokot S 8.6-50 MG TAB PO SCH ×2 (10:34→22:03)
[2020-05-11] MEDS: Famotidine/PF 20 mg/2ml Vial SLOW IVP SCH (10:35)
[2020-05-11] MEDS: Bacitracin 1 PK TOP SCH ×2 (10:35→22:02)
[2020-05-11] MEDS: Metoprolol Tartrate 25 MG TAB PO SCH ×2 (10:35→22:02)
[2020-05-11] MEDS: Enoxaparin Sodium 30 MG/0.3 ML SYRINGE SC SCH (10:35)
[2020-05-11] MEDS: Polyethylene Glycol 3350 17 GM Packet PO SCH (10:35)
[2020-05-11] MEDS: Gabapentin 300 MG CAP PO SCH ×3 (10:36→21:58)
[2020-05-11] MEDS ORDERED: Furosemide 20 MG/2 ML VIAL SLOW IVP SCH (14:00)
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
[2020-05-12] MEDS: Acetaminophen 500 MG TAB PO SCH ×4 (03:57→22:09)
--- NOTE | 2020-05-12 09:16 | RAD ---
CHEST 1 VIEW: Date: 05/12/2020 INDICATION: Respiratory failure and tracheostomy. COMPARISON: Prior exam dated 05/10/2020. IMPRESSION: Right lung air space disease persists. Small bilateral pleural effusions are similar appearing. Midli ne sternotomy changes, left-sided thoracostomy tube, and left-sided subclavian central venous cathete r are unchanged. No pneumothorax is evident. No acute osseous abnormality. POS: BH
[2020-05-12] MEDS: Bacitracin 1 PK TOP SCH ×2 (10:58→22:08)
[2020-05-12] MEDS: Enoxaparin Sodium 30 MG/0.3 ML SYRINGE SC SCH (10:58)
[2020-05-12] MEDS: Gabapentin 300 MG CAP PO SCH ×2 (10:58→11:06)
[2020-05-12] MEDS: Atorvastatin Calcium 40 MG TAB PO SCH (10:59)
[2020-05-12] MEDS: Metoprolol Tartrate 25 MG TAB PO SCH ×2 (10:59→22:08)
[2020-05-12] MEDS: Polyethylene Glycol 3350 17 GM Packet PO SCH (11:00)
[2020-05-12] MEDS: Senokot S 8.6-50 MG TAB PO SCH ×2 (11:00→22:08)
[2020-05-12] MEDS: Famotidine 20 MG TAB PO SCH (11:04)
[2020-05-12] MEDS: Famotidine/PF 20 mg/2ml Vial SLOW IVP SCH (11:50)
[2020-05-12 14:16] VITALS: BMI 24.5
[2020-05-12] MEDS: Gabapentin 100 MG CAP PO SCH ×2 (16:14→22:08)
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
[2020-05-13] MEDS: Acetaminophen 500 MG TAB PO SCH ×4 (04:59→21:53)
[2020-05-13 05:24] LABS: #Eosinphils 0.5 thou/uL (0.0-0.7); #Lymphocytes 0.6 thou/uL (1.20-3.40); #Monocytes 0.6 thou/uL (0.11-0.59); #Neutrophils 4.9 thou/uL (1.40-6.50); %Basophils 0.5 % (0.0-1.0); %Lymphocytes 9.4 % (21.0-51.0); %Monocytes 9.7 % (0.0-10.0); %Neutrophils 73.4 % (42.0-75.0); Hemoglobin 8.1 g/dL (14.0-18.0); Mean Corpuscular HGB CONC 32.9 g/dL (32.0-36.0); Mean Corpuscular Hemoglobin 31.9 pg (27.0-31.0); Mean Corpuscular Volume 96.7 fL (78.0-98.0); Mean Platelet Volume 6.9 fL (7.4-10.4); Platelet Count 283 thou/uL (130-400); RBC Distribution Width 13.8 % (11.5-14.5); Red Blood Cell (RBC) Count 2.54 mill/uL (4.70-6.10); White Blood Cell (WBC) Count 6.6 thou/uL (4.8-10.8)
[2020-05-13 05:52] LABS: Anion Gap 10 mmol/L (10-20); BUN (Urea Nitrogen) 28 mg/dL (8.4-25.7); Calc. Creatinine Clearance 84 mL/min (70-130); Calcium 7.4 mg/dL (7.8-10.44); Carbon Dioxide 28 mmol/L (23-31); Chloride 108 mmol/L (98-107); Glucose 89 mg/dL (83-110); Magnesium 2.1 mg/dL (1.6-2.6); Phosphorus 2.5 mg/dL (2.3-4.7); Potassium 3.7 mmol/L (3.5-5.1); Sodium 142 mmol/L (136-145)
--- NOTE | 2020-05-13 07:50 | RAD ---
Chest AP view INDICATION: Follow-up CT COMPARISON: Prior exam dated May 12, 2020 FINDINGS: Lungs: There is improvement in the central edema pattern and bilateral airspace disease. Cardiac silhouette: Mild cardiomegaly is stable Pulmonary vasculature: Pulmonary vascular congestion has improved. Pleural spaces: Small bilateral pleural effusions persist. Upper abdomen: No abnormality seen. Osseous structures: No acute osseous abnormality. Additional findings: Left-sided thoracostomy tube has been removed. No pneumothorax is evident. Midl ine sternotomy changes are stable. Left subclavian central venous catheter is stable. IMPRESSION: Improving CHF. Improving airspace disease. Interval removal of the left-sided thoracostomy tube.
[2020-05-13] MEDS ORDERED: Famotidine 20 MG TAB PO SCH (09:00)
[2020-05-13] MEDS: Senokot S 8.6-50 MG TAB PO SCH ×2 (10:08→21:55)
[2020-05-13] MEDS: Ascorbic Acid 500 mg Chewable Tablet PO SCH (10:09)
[2020-05-13] MEDS: Famotidine 20 MG TAB PO SCH (10:09)
[2020-05-13] MEDS: Metoprolol Tartrate 25 MG TAB PO SCH ×2 (10:09→21:54)
[2020-05-13] MEDS: Gabapentin 100 MG CAP PO SCH ×3 (10:09→21:54)
[2020-05-13] MEDS: Ferrous Sulfate 325 MG TAB PO SCH ×2 (10:09→16:20)
[2020-05-13] MEDS: Atorvastatin Calcium 40 MG TAB PO SCH (10:09)
[2020-05-13] MEDS: Bacitracin 1 PK TOP SCH ×2 (10:10→21:53)
[2020-05-13] MEDS: Polyethylene Glycol 3350 17 GM Packet PO SCH (10:10)
[2020-05-13] MEDS: Enoxaparin Sodium 30 MG/0.3 ML SYRINGE SC SCH (10:10)
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
[2020-05-13] MEDS: traMADol HCl 50 MG TAB PO PRN (23:54)
[2020-05-13] MEDS: Melatonin 3 MG TAB PO PRN (23:55)
[2020-05-13] MEDS: Cyclobenzaprine 10 MG TAB PO PRN (23:55)
[2020-05-14] MEDS: Acetaminophen 500 MG TAB PO SCH ×4 (04:14→21:21)
[2020-05-14 05:42] LABS: #Eosinphils 0.4 thou/uL (0.0-0.7); #Monocytes 0.8 thou/uL (0.11-0.59); #Neutrophils 4.8 thou/uL (1.40-6.50); %Basophils 0.6 % (0.0-1.0); %Eosinophils 5.3 % (0.0-10.0); %Lymphocytes 14.7 % (21.0-51.0); %Monocytes 11.2 % (0.0-10.0); %Neutrophils 68.1 % (42.0-75.0); Hemoglobin 8.4 g/dL (14.0-18.0); Mean Corpuscular HGB CONC 31.7 g/dL (32.0-36.0); Mean Corpuscular Volume 97.6 fL (78.0-98.0); Mean Platelet Volume 6.8 fL (7.4-10.4); Platelet Count 360 thou/uL (130-400); Red Blood Cell (RBC) Count 2.71 mill/uL (4.70-6.10)
[2020-05-14 06:06] LABS: Anion Gap 12 mmol/L (10-20); BUN (Urea Nitrogen) 25 mg/dL (8.4-25.7); Calc. Creatinine Clearance 79 mL/min (70-130); Calcium 7.3 mg/dL (7.8-10.44); Carbon Dioxide 24 mmol/L (23-31); Chloride 108 mmol/L (98-107); Glucose 83 mg/dL (83-110); Phosphorus 3.1 mg/dL (2.3-4.7); Potassium 3.8 mmol/L (3.5-5.1); Sodium 140 mmol/L (136-145)
[2020-05-14] MEDS: Ferrous Sulfate 325 MG TAB PO SCH ×2 (09:42→16:35)
[2020-05-14] MEDS: Senokot S 8.6-50 MG TAB PO SCH ×2 (09:42→21:22)
[2020-05-14] MEDS: Famotidine 20 MG TAB PO SCH (09:42)
[2020-05-14] MEDS: Bacitracin 1 PK TOP SCH ×2 (09:42→21:21)
[2020-05-14] MEDS: Atorvastatin Calcium 40 MG TAB PO SCH (09:42)
[2020-05-14] MEDS: Ascorbic Acid 500 mg Chewable Tablet PO SCH (09:43)
[2020-05-14] MEDS: Gabapentin 100 MG CAP PO SCH ×3 (09:43→21:21)
[2020-05-14] MEDS: Polyethylene Glycol 3350 17 GM Packet PO SCH (09:43)
[2020-05-14] MEDS: Metoprolol Tartrate 25 MG TAB PO SCH ×2 (09:44→21:22)
[2020-05-14] MEDS: Enoxaparin Sodium 30 MG/0.3 ML SYRINGE SC SCH (09:44)
[2020-05-14] MEDS ORDERED: PHOS-NAK 1 PKT PACK PO SCH (10:15)
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
[2020-05-14] MEDS: Cyclobenzaprine 10 MG TAB PO PRN (21:22)
[2020-05-15] MEDS: Acetaminophen 500 MG TAB PO SCH ×4 (03:35→21:48)
[2020-05-15] MEDS: Enoxaparin Sodium 30 MG/0.3 ML SYRINGE SC SCH (09:16)
[2020-05-15] MEDS: Senokot S 8.6-50 MG TAB PO SCH ×2 (09:17→21:49)
[2020-05-15] MEDS: Famotidine 20 MG TAB PO SCH (09:17)
[2020-05-15] MEDS: Gabapentin 100 MG CAP PO SCH ×3 (09:17→21:49)
[2020-05-15] MEDS: Bacitracin 1 PK TOP SCH ×2 (09:18→21:48)
[2020-05-15] MEDS: Atorvastatin Calcium 40 MG TAB PO SCH (09:18)
[2020-05-15] MEDS: Metoprolol Tartrate 25 MG TAB PO SCH ×2 (09:18→21:49)
[2020-05-15] MEDS: Ascorbic Acid 500 mg Chewable Tablet PO SCH (09:19)
[2020-05-15] MEDS: Ferrous Sulfate 325 MG TAB PO SCH ×2 (09:19→16:24)
[2020-05-15] MEDS: Polyethylene Glycol 3350 17 GM Packet PO SCH (09:19)
[2020-05-15] MEDS ORDERED: Cyclobenzaprine 10 MG TAB PO PRN (13:09)
--- NOTE | 2020-05-15 15:51 | ULT ---
BILATERAL LOWER EXTREMITY VENOUS DOPPLER EVALUATION PROVIDED CLINICAL HISTORY: History of right foreleg and left hip surgery TECHNIQUE: Grayscale, color doppler and spectral doppler images were obtained of the common femoral , femoral, profunda femoral, popliteal and posterior tibial veins of both lower extremities. FINDINGS: There is normal compression, flow and augmentation seen with the deep venous structures within both l ower extremities. The right posterior tibial vein was not assessed due to bandaging. IMPRESSION: No sonographic evidence for lower extremity deep venous thrombosis.
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
[2020-05-15] MEDS: Melatonin 3 MG TAB PO SCH (21:49)
[2020-05-16] MEDS: Acetaminophen 500 MG TAB PO SCH ×4 (03:04→21:05)
[2020-05-16] MEDS: Gabapentin 100 MG CAP PO SCH ×3 (08:31→21:04)
[2020-05-16] MEDS: Metoprolol Tartrate 25 MG TAB PO SCH ×2 (08:31→21:06)
[2020-05-16] MEDS: Ferrous Sulfate 325 MG TAB PO SCH ×2 (08:31→17:20)
[2020-05-16] MEDS: Senokot S 8.6-50 MG TAB PO SCH ×2 (08:31→21:04)
[2020-05-16] MEDS: Ascorbic Acid 500 mg Chewable Tablet PO SCH (08:31)
[2020-05-16] MEDS: Bacitracin 1 PK TOP SCH ×2 (08:31→21:06)
[2020-05-16] MEDS: Famotidine 20 MG TAB PO SCH (08:32)
[2020-05-16] MEDS: Atorvastatin Calcium 40 MG TAB PO SCH (08:32)
[2020-05-16] MEDS: Polyethylene Glycol 3350 17 GM Packet PO SCH (08:32)
[2020-05-16] MEDS: Enoxaparin Sodium 40 MG/0.4 ML SYRINGE SC SCH (08:32)
[2020-05-16 09:41] LABS: #Eosinphils 0.1 thou/uL (0.0-0.7); #Lymphocytes 0.6 thou/uL (1.20-3.40); #Monocytes 0.4 thou/uL (0.11-0.59); #Neutrophils 3.6 thou/uL (1.40-6.50); %Basophils 0.5 % (0.0-1.0); %Eosinophils 1.9 % (0.0-10.0); %Lymphocytes 12.7 % (21.0-51.0); %Monocytes 8.8 % (0.0-10.0); %Neutrophils 76.1 % (42.0-75.0); Hemoglobin 8.8 g/dL (14.0-18.0); Mean Corpuscular HGB CONC 31.3 g/dL (32.0-36.0); Mean Corpuscular Hemoglobin 30.2 pg (27.0-31.0); Mean Corpuscular Volume 96.4 fL (78.0-98.0); Mean Platelet Volume 6.7 fL (7.4-10.4); Platelet Count 394 thou/uL (130-400); White Blood Cell (WBC) Count 4.7 thou/uL (4.8-10.8)
[2020-05-16 09:59] LABS: Anion Gap 14 mmol/L (10-20); BUN (Urea Nitrogen) 24 mg/dL (8.4-25.7); Calc. Creatinine Clearance 79 mL/min (70-130); Calcium 7.6 mg/dL (7.8-10.44); Carbon Dioxide 24 mmol/L (23-31); Chloride 106 mmol/L (98-107); Glucose 101 mg/dL (83-110); Phosphorus 3.4 mg/dL (2.3-4.7); Potassium 4.1 mmol/L (3.5-5.1); Sodium 140 mmol/L (136-145)
[2020-05-16] MEDS: Melatonin 3 MG TAB PO SCH (21:06)
[2020-05-17] MEDS: Acetaminophen 500 MG TAB PO SCH ×4 (04:18→21:56)
[2020-05-17 06:40] LABS: #Eosinphils 0.1 thou/uL (0.0-0.7); #Lymphocytes 0.6 thou/uL (1.20-3.40); #Monocytes 0.3 thou/uL (0.11-0.59); #Neutrophils 2.7 thou/uL (1.40-6.50); %Basophils 0.2 % (0.0-1.0); %Eosinophils 1.7 % (0.0-10.0); %Lymphocytes 17.1 % (21.0-51.0); %Monocytes 8.7 % (0.0-10.0); %Neutrophils 72.4 % (42.0-75.0); Hemoglobin 8.5 g/dL (14.0-18.0); Mean Corpuscular HGB CONC 32.4 g/dL (32.0-36.0); Mean Corpuscular Hemoglobin 31.3 pg (27.0-31.0); Mean Corpuscular Volume 96.5 fL (78.0-98.0); Platelet Count 374 thou/uL (130-400); RBC Distribution Width 13.9 % (11.5-14.5); White Blood Cell (WBC) Count 3.7 thou/uL (4.8-10.8)
[2020-05-17 06:44] LABS: Anion Gap 14 mmol/L (10-20); BUN (Urea Nitrogen) 25 mg/dL (8.4-25.7); Calc. Creatinine Clearance 77 mL/min (70-130); Calcium 7.3 mg/dL (7.8-10.44); Carbon Dioxide 24 mmol/L (23-31); Chloride 106 mmol/L (98-107); Glucose 100 mg/dL (83-110); Phosphorus 3.3 mg/dL (2.3-4.7); Potassium 4.2 mmol/L (3.5-5.1); Sodium 140 mmol/L (136-145)
[2020-05-17] MEDS: Senokot S 8.6-50 MG TAB PO SCH ×2 (10:27→21:57)
[2020-05-17] MEDS: Famotidine 20 MG TAB PO SCH (10:28)
[2020-05-17] MEDS: Polyethylene Glycol 3350 17 GM Packet PO SCH (10:29)
[2020-05-17] MEDS: Atorvastatin Calcium 40 MG TAB PO SCH (10:29)
[2020-05-17] MEDS: Enoxaparin Sodium 40 MG/0.4 ML SYRINGE SC SCH (10:29)
[2020-05-17] MEDS: Gabapentin 100 MG CAP PO SCH ×5 (10:29→22:44)
[2020-05-17] MEDS: Metoprolol Tartrate 25 MG TAB PO SCH ×2 (10:30→21:58)
[2020-05-17] MEDS: Ferrous Sulfate 325 MG TAB PO SCH ×2 (10:30→18:20)
[2020-05-17] MEDS: Ascorbic Acid 500 mg Chewable Tablet PO SCH (10:30)
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
[2020-05-17] MEDS: Melatonin 3 MG TAB PO SCH (21:58)
[2020-05-18] MEDS: Acetaminophen 500 MG TAB PO SCH ×4 (05:12→20:53)
[2020-05-18] MEDS: Polyethylene Glycol 3350 17 GM Packet PO SCH (10:18)
[2020-05-18] MEDS: Enoxaparin Sodium 40 MG/0.4 ML SYRINGE SC SCH (10:18)
[2020-05-18] MEDS: Senokot S 8.6-50 MG TAB PO SCH ×2 (10:19→20:53)
[2020-05-18] MEDS: Famotidine 20 MG TAB PO SCH (10:19)
[2020-05-18] MEDS: Atorvastatin Calcium 40 MG TAB PO SCH (10:20)
[2020-05-18] MEDS: Ferrous Sulfate 325 MG TAB PO SCH ×2 (10:20→16:25)
[2020-05-18] MEDS: Ascorbic Acid 500 mg Chewable Tablet PO SCH (10:20)
[2020-05-18] MEDS: Gabapentin 100 MG CAP PO SCH ×2 (10:20→16:25)
[2020-05-18] MEDS: Metoprolol Tartrate 25 MG TAB PO SCH ×2 (10:21→20:53)
[2020-05-18 11:01] LABS: Actual Bicarbonate (HCO3a) 15.3 mEq/L (22-28); Analyzer IN Cardio OR; Base Excess (BEa) -11.2 mEq/L (-2.0 to +3.0); CO2 Tension 36.2 mmHg (35.0-45.0); Calcium, Ionized (arterial) 1.41 mmol/L (1.12-1.30); Hemoglobin (Hb) 9.8 g/dL (14.0-18.0); O2 Tension (PaO2), arterial 140.4 mmHg (> 60.0); Potassium - ABG Lab 4.69 mmol/L (3.70-5.30)
[2020-05-18 12:28] LABS: Puncture Site Arterial Line; pH, Arterial 7.24 (7.35-7.45)
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
[2020-05-18] MEDS: Melatonin 3 MG TAB PO SCH (20:53)
[2020-05-18] MEDS ORDERED: Gabapentin 100 MG CAP PO SCH (21:00)
[2020-05-19] MEDS: Acetaminophen 500 MG TAB PO SCH ×3 (03:48→10:27)
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
[2020-05-19 06:33] LABS: Hemoglobin 9.8 g/dL (14.0-18.0); Mean Corpuscular HGB CONC 30.5 g/dL (32.0-36.0); Mean Corpuscular Hemoglobin 29.3 pg (27.0-31.0); Mean Platelet Volume 8.5 fL (7.4-10.4); Platelet Count 254 thou/uL (130-400); RBC Distribution Width 13.8 % (11.5-14.5); Red Blood Cell (RBC) Count 3.34 mill/uL (4.70-6.10); White Blood Cell (WBC) Count 3.1 thou/uL (4.8-10.8)
[2020-05-19 07:39] LABS: Anion Gap 17 mmol/L (10-20); BUN (Urea Nitrogen) 23 mg/dL (8.4-25.7); Calc. Creatinine Clearance 70 mL/min (70-130); Calcium 7.3 mg/dL (7.8-10.44); Carbon Dioxide 18 mmol/L (23-31); Chloride 106 mmol/L (98-107); Glucose 82 mg/dL (83-110); Magnesium 2.1 mg/dL (1.6-2.6); Phosphorus 2.5 mg/dL (2.3-4.7); Potassium 4.8 mmol/L (3.5-5.1); Sodium 136 mmol/L (136-145)
[2020-05-19 07:49] LABS: Band 11 % (5-11); Eosinophils 1 % (0-10); Hypochromia SLIGHT = 6-15 cells (100X) (0-5/hpf); Lymphocytes 19 % (21-51); MDiff Complete? YES; Monocytes 7 % (0-10); Neutrophil 61 % (42-75); Platelet Morphology Comment Appears Adequate; Polychromasia SLIGHT = 2-3 cells (100X) (0-2/hpf); Reactive Lymphocytes 1 % (0-10)
[2020-05-19] MEDS: Polyethylene Glycol 3350 17 GM Packet PO SCH (10:24)
[2020-05-19] MEDS: Enoxaparin Sodium 40 MG/0.4 ML SYRINGE SC SCH (10:25)
[2020-05-19] MEDS: Famotidine 20 MG TAB PO SCH (10:26)
[2020-05-19] MEDS: Ascorbic Acid 500 mg Chewable Tablet PO SCH (10:26)
[2020-05-19] MEDS: Senokot S 8.6-50 MG TAB PO SCH (10:26)
[2020-05-19] MEDS: Ferrous Sulfate 325 MG TAB PO SCH (10:26)
[2020-05-19] MEDS: Atorvastatin Calcium 40 MG TAB PO SCH (10:26)
[2020-05-19] MEDS: Metoprolol Tartrate 25 MG TAB PO SCH (10:26)
[2020-05-19] MEDS: Gabapentin 100 MG CAP PO SCH (10:27)
[2020-05-19 12:15] VITALS: BP 104/64; TEMP 99.5
== END 2020-05-19 12:25 | DRG 957 ==
LOC: ERS 12:20 → ERHOLD 17:05 → CCU 21:14 → IMCU/EMU 05-08 23:51 → SURG A 05-10 17:03
PROVIDERS: ADMIT Surgery; ATTEND Surgery
PROC: 0T9B70Z Drainage of Bladder with Drainage Device, Via Natural or Artificial Opening (ICD-10-PCS; 2020-05-04)
PROC: 0BH18EZ Insertion of Endotracheal Airway into Trachea, Via Natural or Artificial Opening Endoscopic (ICD-10-PCS; 2020-05-04)
PROC: 5A1945Z Respiratory Ventilation, 24-96 Consecutive Hours (ICD-10-PCS; 2020-05-04)
PROC: 30233L1 Transfusion of Nonautologous Fresh Plasma into Peripheral Vein, Percutaneous Approach (ICD-10-PCS; 2020-05-04)
PROC: 30233N1 Transfusion of Nonautologous Red Blood Cells into Peripheral Vein, Percutaneous Approach (ICD-10-PCS; 2020-05-04)
PROC: 30233R1 Transfusion of Nonautologous Platelets into Peripheral Vein, Percutaneous Approach (ICD-10-PCS; 2020-05-04)
PROC: 30233K1 Transfusion of Nonautologous Frozen Plasma into Peripheral Vein, Percutaneous Approach (ICD-10-PCS; 2020-05-04)
PROC: 0PS004Z Reposition Sternum with Internal Fixation Device, Open Approach (ICD-10-PCS; principal; 2020-05-05)
PROC: 0BCP0ZZ Extirpation of Matter from Left Pleura, Open Approach (ICD-10-PCS; 2020-05-05)
PROC: 0QHG36Z Insertion of Intramedullary Internal Fixation Device into Right Tibia, Percutaneous Approach (ICD-10-PCS; 2020-05-05)
PROC: 02HV33Z Insertion of Infusion Device into Superior Vena Cava, Percutaneous Approach (ICD-10-PCS; 2020-05-05)
PROC: 0W9B30Z Drainage of Left Pleural Cavity with Drainage Device, Percutaneous Approach (ICD-10-PCS; 2020-05-05)
PROC: 0QS504Z Reposition Left Acetabulum with Internal Fixation Device, Open Approach (ICD-10-PCS; 2020-05-07)
DX: S82.251B Displaced comminuted fracture of shaft of right tibia, initial encounter for open fracture type I or II (principal); S32.425A Nondisplaced fracture of posterior wall of left acetabulum, initial encounter for closed fracture; T79.4XXA Traumatic shock, initial encounter; S27.1XXA Traumatic hemothorax, initial encounter; J96.01 Acute respiratory failure with hypoxia; S12.601A Unspecified nondisplaced fracture of seventh cervical vertebra, initial encounter for closed fracture; S22.079A Unspecified fracture of T9-T10 vertebra, initial encounter for closed fracture; S22.32XA Fracture of one rib, left side, initial encounter for closed fracture; S22.31XA Fracture of one rib, right side, initial encounter for closed fracture; S22.20XA Unspecified fracture of sternum, initial encounter for closed fracture; S36.029A Unspecified contusion of spleen, initial encounter; E87.2 Acidosis; S27.321A Contusion of lung, unilateral, initial encounter; D62 Acute posthemorrhagic anemia; J98.11 Atelectasis; N17.9 Acute kidney failure, unspecified; V89.2XXA Person injured in unspecified motor-vehicle accident, traffic, initial encounter; S82.451B Displaced comminuted fracture of shaft of right fibula, initial encounter for open fracture type I or II; Z20.828 Contact with and (suspected) exposure to other viral communicable diseases; K21.9 Gastro-esophageal reflux disease without esophagitis; S20.219A Contusion of unspecified front wall of thorax, initial encounter; S62.111A Displaced fracture of triquetrum [cuneiform] bone, right wrist, initial encounter for closed fracture; I25.10 Atherosclerotic heart disease of native coronary artery without angina pectoris; I10 Essential (primary) hypertension; S40.011A Contusion of right shoulder, initial encounter; Z85.46 Personal history of malignant neoplasm of prostate; I25.2 Old myocardial infarction; Z79.82 Long term (current) use of aspirin; Z95.5 Presence of coronary angioplasty implant and graft; Z79.899 Other long term (current) drug therapy; E87.6 Hypokalemia; E83.39 Other disorders of phosphorus metabolism; I48.91 Unspecified atrial fibrillation
CPT/HCPCS: 36415; 36416; 36430; 36600; 51702; 70450; 71045; 71260; 72125; 72170; 72190; 74177; 76000; 80048; 80053; 80307; 81003; 81015; 82533; 82805; 83605; 83735; 83880; 84100; 84484; 85007; 85014; 85018; 85025; 85027; 85049; 85300; 85362; 85379; 85384; 85610; 85730; 86850; 86900; 86901; 90471; 90715; 93005; 93010; 93306; 93970; 94002; 94003; 94640; 96365; 96375; 96376; C1713; G0390; J0461; J0690; J1630; J1650; J1720; J1940; J2001; J2250; J2270; J2370; J2405; J3010; J3370; J3475; J3490; J7050; J7620; P9012; P9016; P9035; P9048; P9059; Q9967; S0028; U0002